=== PATIENT | female | born 1975 ===

== ENCOUNTER 2018-07-24 08:41 | Emergency (ER) | payer OTHER ==
[2018-07-24 08:53] VITALS: BMI 24.1
[2018-07-24] MEDS ORDERED: Sodium Chloride 0.9% 1,000 ML IV ONE (09:39)
[2018-07-24] MEDS ORDERED: Aluminum Hydroxide/Magnesium Hydroxide Susp (30 mL) PO STA (09:39)
--- NOTE | 2018-07-24 09:39 | C.PDOC ---
History Of Present Illness 43 year old female presents to the ED for evaluation of epigastric pain ongoing for the past 2 hours with associated nausea and shortness of breath. Denies prior presentation of similar pain. Denies any vomiting, diarrhea, fever, uri nary symptoms, or any other complaints. Reports prior history of stomach inflammation. PSH negative. Time Seen by Provider: 07/24/18 09:07 Chief Complaint (Nursing): Chest Pain History Per: Patient History/Exam Limitations: no limitations Onset/Duration Of Symptoms: Hrs (2) Current Symptoms Are (Timing): Still Present Location Of Pain/Discomfort: Epigastric Radiation Of Pain To:: None Associated Symptoms: Nausea. denies: Fever, Chills, Vomiting, Diarrhea, Urinary Symptoms Past Medical History Reviewed: Historical Data, Nursing Documentation, Vital Signs Vital Signs: Last Vital Signs Temp 98.4 F 07/24/18 08:53 Pulse 74 07/24/18 08:59 Resp 12 07/24/18 08:59 BP 107/65 07/24/18 08:59 Pulse Ox 98 07/24/18 08:59 - Medical History Other PMH: Stomach problems Surgical History: Family History: States: No Known Family Hx - Social History Hx Tobacco Use: No Hx Alcohol Use: Yes Hx Substance Use: No - Immunization History Hx Tetanus Toxoid Vaccination: No Hx Influenza Vaccination: No Hx Pneumococcal Vaccination: No Review Of Systems Except As Marked, All Systems Reviewed And Found Negative. Constitutional: Negative for: Fever, Chills Gastrointestinal: Positive for: Nausea, Abdominal Pain (epigastric pain ). Negative for: Vomiting, Diarrhea Genitourinary: Negative for: Dysuria, Hematuria Physical Exam - Physical Exam Appears: Non-toxic, Other (mild distress) Skin: Warm, Dry, No Rash Head: Normacephalic Eye(s): bilateral: Normal Inspection, Other (anicteric) Nose: Normal Oral Mucosa: Moist Neck: Normal ROM, Supple Cardiovascular: Rhythm Regular, No Murmur Respiratory: No Rales, No Rhonchi, No Wheezing, Other (NARD) Gastrointestinal/Abdominal: Soft, No Tenderness (epigastric and RUQ tenderness, more epigastric tenderness than right RUQ ), No Guarding, No Rebound Back: No CVA Tenderness Extremity: Bilateral: Atraumatic, Normal Color And Temperature, Normal ROM Neurological/Psych: Oriented x3, Normal Speech Gait: Steady ED Course And Treatment - Laboratory Results Result Diagrams: 07/24/18 09:50 07/24/18 09:50 ECG: Interpreted By Me, Viewed By Me ECG Rhythm: Sinus Rhythm ECG Interpretation: No Acute Changes Rate From EC O2 Sat by Pulse Oximetry: 98 (RA) Pulse Ox Interpretation: Normal - Radiology CXR: Interpreted by Me CXR Interpretation: Yes: No Acute Disease - CT Scan/US US abdomen Other Rad Studies (CT/US): Read By Radiologist, Radiology Report Reviewed CT/US Interpretation: IMPRESSION: Heterogeneous echogenic liver likely due to fibrofatty infiltration. Multiple gallstones. No ultrasound evidence of significant gallbladder wall thickening or pericholecystic fluid. The pancreas obscured by overlying bowel gas. Progress - Re-Evaluation Re-evaluation Note: 07/24/18 12:06 IMPROVED ASYMPT. VSS. DIET MOD, FU CLINIC - Data Reviewed Data Reviewed: Lab, Diagnostic imaging, EKG, Old records Medical Decision Making Medical Decision Making: Plan - Bloodwork - CXR - IV Fluids - Protonix 40mg IVP - Zofran 4mg IVP - Morphine 2mg IVP - Pepcid 20mg IVP - Maalox 30ml PO Disposition Counseled Patient/Family Regarding: Studies Performed, Diagnosis, Need For Followup, Rx Given - Disposition Referrals: [facility] [Outside] [facility] [Outside] Disposition: HOME/ ROUTINE Disposition Time: 12:06 Condition: IMPROVED Prescriptions: Acetaminophen with Codeine [Tylenol with Codeine No. 3 300 mg-30 mg] 1 tab PO Q6 PRN #12 tab PRN Reason: Pain, Moderate (4-7) Ondansetron [Zofran Odt] 4 mg PO TID PRN #9 odt PRN Reason: Nausea/Vomiting Instructions: Gallstones (DC) Forms: [employer] (Citizen Of [place]), Work Excuse Print Language: IRANIAN - Clinical Impression Clinical Impression: Biliary colic - Scribe Statement The provider has reviewed the documentation as recorded by the Mileibmelina Nelson All medical record entries made by the Scribe were at my direction and perso anna dictated by me. I have reviewed the chart and agree that the record accurately reflects my personal performance of the history, physical exam, medical decision making, and the department course for this patient. I have also personally directed, reviewed, and agree with the discharge instructions and disposition.
[2018-07-24] MEDS ORDERED: Aluminum Hydroxide/Magnesium Hydroxide Susp (30 mL) ONE (09:53)
[2018-07-24] MEDS ORDERED: Sodium Chloride 0.9% 1,000 ML ONE (09:54)
[2018-07-24 09:56] LABS: BASO % 0.3 % (0.0-2.0); EOS # 0.1 K/uL (0.0-0.7); EOS % 1.2 % (0.0-4.0); LYMPH # 2.3 K/uL (1.0-4.3); LYMPH % 22.4 % (20.0-40.0); MEAN CORPUSCULAR HEMOGLOBIN 26.8 pg (27.0-31.0); MEAN CORPUSCULAR HGB CONC 32.5 g/dL (33.0-37.0); MONO # 0.7 K/uL (0.0-0.8); MONO % 7.1 % (0.0-10.0); NEUT # 7.2 K/uL (1.8-7.0); NRBC % 0.1 % (0.0-2.0); RBC 4.43 Mil/uL (3.80-5.20); RED CELL DISTRIBUTION WIDTH 13.5 % (11.5-14.5); WHITE BLOOD COUNT 10.5 K/uL (4.8-10.8)
[2018-07-24 10:03] LABS: SQUAMOUS EPITHIAL 19 /hpf (0-5); URINE BACTERIA OCC (<OCC); URINE BILIRUBIN NEGATIVE (NEGATIVE); URINE BLOOD 1+ (NEGATIVE); URINE CLARITY Hazy (Clear); URINE COLOR Yellow (YELLOW); URINE GLUCOSE (UA) NORMAL (Normal); URINE LEUKOCYTE ESTERASE TRACE Leu/uL (Negative); URINE PROTEIN NEGATIVE (NEGATIVE)
[2018-07-24 10:05] VITALS: RESP 16
[2018-07-24 10:05] LABS: HEMOGLOBIN 11.9 g/dL (11.0-16.0); MEAN CELL VOLUME 82.5 fL (81.0-99.0)
[2018-07-24 10:08] LABS: ALB/GLOB RATIO 1.1 (1.0-2.1); ALBUMIN 3.8 g/dL (3.5-5.0); ALT/SGPT 44 U/L (9-52); AST/SGOT 46 U/L (14-36); BLOOD UREA NITROGEN 12 mg/dL (7-17); CALCIUM 8.2 mg/dl (8.6-10.4); GFR NON-AFRICAN AMERICAN > 60; LIPASE 91 U/L (23-300)
--- NOTE | 2018-07-24 11:26 | RAD ---
Date of service: 07/24/2018 HISTORY: abd pain COMPARISON: Comparison chest 02/13/2017. TECHNIQUE: Chest PA and lateral FINDINGS: LUNGS: No acute consolidation. The interstitial markings are somewhat increased and coarsened; rule out sequela of reactive/inflammatory airway disease or viral illness. PLEURA: No significant pleural effusion identified. No pneumothorax apparent. CARDIOVASCULAR: No aortic atherosclerotic calcification present. Normal cardiac size. No pulmonary vascular congestion. OSSEOUS STRUCTURES: No significant abnormalities. VISUALIZED UPPER ABDOMEN: Normal. OTHER FINDINGS: None. IMPRESSION: No acute consolidation. The interstitial markings are somewhat increased and coarsened; rule out sequela of reactive/inflammatory airway disease or viral illness.
--- NOTE | 2018-07-24 11:29 | US ---
Date of service: 07/24/2018 HISTORY: abd pain COMPARISON: None. TECHNIQUE: Sonographic evaluation of the right upper quadrant of the abdomen. FINDINGS: LIVER: Measures 15.3 cm in length. Mildly heterogeneous and increased echogenicity of the liver parenchyma. No mass. No intrahepatic bile duct dilatation. GALLBLADDER: Multiple gallstones are noted. The gallbladder wall measures 2 millimeter. No evidence of significant pericholecystic fluid. COMMON BILE DUCT: Measures 3.1 mm. No stones. No dilatation. PANCREAS: The pancreas obscured by overlying bowel gas. RIGHT KIDNEY: Measures 11.6 x 5.1 x 6.1 cm in length. Normal echogenicity. No calculus, mass, or hydronephrosis. AORTA: No aneurysmal dilatation. IVC: Unremarkable. OTHER FINDINGS: None . IMPRESSION: Heterogeneous echogenic liver likely due to fibrofatty infiltration. Multiple gallstones. No ultrasound evidence of significant gallbladder wall thickening or pericholecystic fluid. The pancreas obscured by overlying bowel gas.
[2018-07-24 11:50] VITALS: O2SAT 98
[2018-07-24 12:35] VITALS: BP 120/75; PULSE 65; TEMP 98
--- NOTE | 2018-07-27 19:48 | CARD ---
APPROVED REPORT Date of service: 07/24/2018 EKG Measurement Heart [id number] [id number] <Conclusion> Normal sinus rhythm Minimal voltage criteria for LVH, may be normal variant Borderline ECG
== END 2018-07-24 12:33 | disposition home or self-care (01) ==
LOC: C.ER 08:41
DX: K80.50 Calculus of bile duct without cholangitis or cholecystitis without obstruction (principal)
CPT/HCPCS: 71046; 76705; 80053; 81001; 83690; 84484; 85025; 93005; 96374; 96375; 99285; C9113; J2270; J2405; J7030